=== PATIENT | female | born 1970 | race Hispanic/Latino ===

== ENCOUNTER 2018-03-09 17:55 | Emergency (ER) | payer OTHER ==
[2018-03-09 18:14] VITALS: PULSE 85; RESP 18; TEMP 98.2; O2SAT 98
--- NOTE | 2018-03-09 19:51 | ED PDOC ---
Arrival/HPI - General Chief Complaint: Medical Clearance Time Seen by Provider: 03/09/18 17:59 Historian: Patient - History of Present Illness Narrative History of Present Illness (Text): 03/09/18 19:45 47yo female with pmhx of hypertension, anxiety bib EMS to r/o TB. Patient reports hemoptysis/blood streak sputum for months now. States she was seen by her PMD and had chest xray 2months ago. She states she had blood work today, but was told by her PMD to go to the ED days ago. She reports intermittent cough. She denies weight loss, night sweats, chest pain, SOB, diaphoresis, any other complaint. Past Medical History - Provider Review Nursing Documentation Reviewed: Yes - Infectious Disease Hx of Infectious Diseases: None - Cardiac Hx Hypertension: Yes - Pulmonary Hx Asthma: Yes Hx Chronic Obstructive Pulmonary Disease (COPD): Yes - Neurological Hx Seizures: Yes - HEENT Hx HEENT Disorder: No - Renal Hx Renal Disorder: No - Endocrine/Metabolic Hx Endocrine Disorders: No - Hematological/Oncological Hx Blood Disorders: No - Integumentary Other/Comment: red raised rash over entire body caused by dilantin as per patient, she now takes a lower dose. Pt has had rash x 2 months - Musculoskeletal/Rheumatological Hx Musculoskeletal Disorders: No Hx Falls: No - Gastrointestinal Hx Gastrointestinal Disorders: No - Genitourinary/Gynecological Hx Genitourinary Disorders: No Other/Comment: pt has 14 children including 4 sets of twins - Psychiatric Hx Anxiety: Yes Hx Depression: Yes Hx Substance Use: No - Past Surgical History Past Surgical History: No Previous - Surgical History Hx Tonsillectomy: Yes - Anesthesia Hx Anesthesia: Yes - Suicidal Assessment Feels Threatened In Home Enviroment: No Family/Social History - Physician Review Nursing Documentation Reviewed: Yes Family/Social History: Unknown Family HX Smoking Status: Heavy Smoker > 10 Cigarettes Daily Hx Alcohol Use: Yes (beer every other day) Hx Substance Use: No Substance used: crack, [place] Allergies/Home Meds Allergies/Adverse Reactions: Allergies Penicillins Allergy (Severe, Verified 03/09/18 18:22) SHORTNESS OF BREATH Home Medications: Home Meds Medication Instructions Recorded Confirmed ALPRAZolam [Xanax] 1 mg PO PRN PRN 02/26/14 09/19/15 Acetaminophen/Oxycodone Hydr 1 tab PO DAILY 02/26/14 09/19/15 [APAP/Oxycodone 325 mg-5 mg] Albuterol Sulfate [Proair Hfa] 1 puff PO DAILY 02/26/14 09/19/15 Albuterol Sulfate [Ventolin Hfa] 1 puff PO PRN PRN 02/26/14 09/19/15 Amlodipine Besylate [Amlodipine] 2.5 mg PO DAILY 02/26/14 09/19/15 Aspirin [Aspirin] 325 mg PO DAILY 02/26/14 09/19/15 Beclomethasone Dipropionate [Qvar] 1 puff PO PRN PRN 02/26/14 09/19/15 Cetirizine HCl [Cetirizine HCl] 10 mg PO DAILY 02/26/14 09/19/15 Loratadine [Loratadine] 10 mg PO DAILY 02/26/14 09/19/15 Mometasone/Formoterol [Dulera] 1 puff PO DAILY 02/26/14 09/19/15 Phenytoin [Phenytoin] 100 mg PO TID 02/26/14 09/19/15 Famotidine [Pepcid] 40 mg PO DAILY 09/19/15 09/19/15 Fluticasone/Vilanterol [Breo 1 puff INH DAILY 09/19/15 09/19/15 Ellipta] Review of Systems - Physician Review All systems were reviewed & negative as marked: Yes - Review of Systems Constitutional: Normal Eyes: Normal ENT: Normal Respiratory: Cough, Sputum (blood streak) Cardiovascular: Normal Gastrointestinal: Normal Genitourinary Female: Normal Musculoskeletal: Normal Skin: Normal Neurological: Normal Endocrine: Normal Hemo/Lymphatic: Normal Psychiatric: Normal Physical Exam Vital Signs Reviewed: Yes Vital Signs Temp Pulse Resp BP Pulse Ox 03/09/18 18:11 98.2 F 85 18 147/51 L 98 Temperature: Afebrile Blood Pressure: Normal Pulse: Regular Respiratory Rate: Normal Appearance: Positive for: Well-Appearing, Non-Toxic, Comfortable Pain Distress: None Mental Status: Positive for: Alert and Oriented X 3 - Systems Exam Head: Present: Atraumatic, Normocephalic Pupils: Present: PERRL Extroacular Muscles: Present: EOMI Conjunctiva: Present: Normal Mouth: Present: Moist Mucous Membranes Neck: Present: Normal Range of Motion Respiratory/Chest: Present: Clear to Auscultation, Good Air Exchange. No: Respiratory Distress, Accessory Muscle Use, Wheezes, Decreased Breath Sounds, Rales, Retracting, Rhonchi, Tachypneic Cardiovascular: Present: Regular Rate and Rhythm, Normal S1, S2. No: Murmurs Abdomen: No: Tenderness, Distention, Peritoneal Signs Back: Present: Normal Inspection Upper Extremity: Present: Normal Inspection. No: Cyanosis, Edema Lower Extremity: Present: Normal Inspection. No: Edema Neurological: Present: GCS=15, CN II-XII Intact, Speech Normal Skin: Present: Warm, Dry, Normal Color. No: Rashes Psychiatric: Present: Alert, Oriented x 3, Normal Insight, Normal Concentration Medical Decision Making ED Course and Treatment: 03/09/18 20:36 PT presented to ED for stated history. Cough was not noted in ED. She was ambulatory and not hypoxic or in any respiratory distress. She was hemodynamically stable. Chest Ct was done in ED. PT however eloped form the ED while waiting for the CT result. - RAD Interpretation Radiology Orders: 03/09/18 18:22 CHEST W/O CONTRAST [CT] Stat Disposition/Present on Arrival - Present on Arrival Any Indicators Present on Arrival: No History of DVT/PE: No History of Uncontrolled Diabetes: No Urinary Catheter: No History of Decub. Ulcer: No History Surgical Site Infection Following: None - Disposition Have Diagnosis and Disposition been Completed?: Yes Diagnosis: Cough, Hemoptysis Disposition: ELOPEMENT - ER ONLY Disposition Time: 20:20 Condition: STABLE Referrals: Lex Abraham MD [Primary Care Provider] - Follow up with primary Forms: [employer] (Japanese)
--- NOTE | 2018-03-09 20:35 | CT ---
EXAM: CT Chest Without Intravenous Contrast EXAM DATE/TIME: 03/09/2018 6:22 PM CLINICAL HISTORY: The patient age is 47 years old and is female; Signs and symptoms; Other: Hemoptysis see below; Additional info: Hemoptysis see below Facility exam id and description: Ct chests chest w/o contrast TECHNIQUE: Axial computed tomography images of the chest without intravenous contrast. All CT scans at this facility use one or more dose reduction techniques, viz.: automated exposure control; ma/kV adjustment per patient size (including targeted exams where dose is matched to indication; i.e. head); or iterative reconstruction technique. Coronal reformatted images were created and reviewed. COMPARISON: No relevant prior studies available. FINDINGS: Lungs: Biapical bullae are visualized. Centrilobular and paraseptal emphysematous changes are identified. There is a small consolidation within the posterior aspect of the right upper lobe, suggestive of atelectatic change or infiltrate. Biapical parenchymal scarring/consolidations are visualized. Within the right middle lobe a 64, there is a 4-5 mm nodule. Scattered tiny hyperdense/calcified nodules are visualized within the right lower lobe. Within the right lower lobe on series 5 image 248, there is an 8mm pleurally based nodule with a small focus of calcification. There is mild pleurally based nodularity within the left lower lobe. Within the left lower lobe on series 4 image 87, there is a 4-5 mm nodule. Scattered nodules are seen within the bilateral pulmonary apices. The largest within the left lung apex on series 4 image 24 measures 7-8 mm. Pleural space: No pneumothorax. No significant effusion. Heart: There is coronary artery calcification. Mediastinum: A few small foci of gas are identified posterior lateral to the trachea, consistent with paratracheal air cysts. Bones/joints: Hypertrophic degenerative changes are noted within the spine. There is mild levoscoliosis of the visualized lumbar spine. Vasculature: No thoracic aortic aneurysm. Lymph nodes: There is a mildly enlarged left axillary lymph node measuring 1.5 x 1.0 cm. Additional small axillary lymph nodes are seen bilaterally. Small mediastinal lymph nodes are visualized, no significant mediastinal lymphadenopathy. Evaluation for hilar lymphadenopathy is limited by the absence of intravenous contrast. Liver: There is hypodense fatty infiltration of the liver. Pancreas: There is atrophy of the pancreas. The pancreas is incompletely visualized. IMPRESSION: 1. Biapical bullae are visualized. Centrilobular and paraseptal emphysematous changes are identified. 2. There is a small consolidation within the posterior aspect of the right upper lobe, suggestive of atelectatic change or infiltrate. Biapical parenchymal scarring/consolidations are visualized. Clinical correlation and follow-up CT are recommended. 3. Scattered pulmonary nodules are noted above. See recommendations below. 4. There is a mildly enlarged left axillary lymph node measuring 1.5 x 1.0 cm. Additional small axillary lymph nodes are seen bilaterally. 5. There is hypodense fatty infiltration of the liver. 6. Additional CT findings described above. FLEISCHNER SOLID 6-8mm MULTIPLE As per Fleischner Society 2017 guidelines for follow-up and management of pulmonary nodules: For patients at low risk (minimal or absent history of smoking and of other known risk factors), recommend CT at 3-6 months, then consider CT at 18-24 months. For patient at high risk (history of smoking or of other known risk factors), recommend CT at 3-6 months, then CT at 18-24 months.
[2018-03-09 21:42] VITALS: BP 147/81
== END 2018-03-09 21:00 | disposition left against medical advice (07) ==
LOC: ED 17:55
DX: R04.2 Hemoptysis (principal)

== ENCOUNTER 2019-01-27 23:20 | Observation (INO) | payer OTHER ==
[2019-01-27 23:22] VITALS: BMI 25.4
[2019-01-27] MEDS ORDERED: Sodium Chloride 0.9% 500 ML IV STA (23:58)
[2019-01-28 00:11] LABS: BASO # 0.07 K/mm3 (0.0-2.0); BASO % 1.1 % (0.0-3.0); EOS # 0.4 (0.0-0.7); EOS % 6.6 % (1.5-5.0); HEMOGLOBIN 9.7 g/dL (12.0-16.0); LYMPH # 2.1 (1.2-3.4); LYMPH % 32.1 % (22.0-35.0); MEAN CELL VOLUME 96.1 fl (80.0-105.0); MEAN CORPUSCULAR HEMOGLOBIN 31.2 pg (25.0-35.0); MEAN CORPUSCULAR HGB CONC 32.4 g/dl (31.0-37.0); MEAN PLATELET VOLUME 9.1 fl (7.0-11.0); MONO # 0.7 (0.1-0.6); RBC 3.11 10^6/uL (3.5-6.1); RED CELL DISTRIBUTION WIDTH 13.6 % (11.5-14.5); WHITE BLOOD COUNT 6.4 10^3/uL (4.5-11.0)
[2019-01-28 00:20] LABS: ALB/GLOB RATIO 1.1 (1.1-1.8); ALT/SGPT 28 U/L (7-56); AST/SGOT 67 U/L (14-36); BLOOD UREA NITROGEN 16 mg/dL (7-21); GFR NON-AFRICAN AMERICAN > 60
[2019-01-28 00:37] LABS: TROPONIN I < 0.01 ng/mL
[2019-01-28 00:38] LABS: CK-MB 2.8 ng/mL (0.0-3.6)
--- NOTE | 2019-01-28 01:51 | ED PDOC ---
Arrival/HPI - General Chief Complaint: Syncope Time Seen by Provider: 01/27/19 23:45 Historian: Patient - History of Present Illness Narrative History of Present Illness (Text): Leta Gallegos is a 48 year old female, whose past medical history includes hypertension, hyperlipidemia, and seizures, who presents to the ED status post syncopal episode. Patient states she was leaving her doctor's office and reports the next thing she remember was that she was on the ground. Patient states she got up and had severe pain to her left ribs radiating to left arm. Patient denies any shortness of breath, abdominal pain, back pain, headache, or any other complaints. Patient states she had no chest pain, or dizziness prior to syncopal episode. Symptom Onset: Sudden Symptom Course: Unchanged Activities at Onset: Light Context: Home Past Medical History - Provider Review Nursing Documentation Reviewed: Yes Primary Care Physician: Lex Abraham MD - Infectious Disease Hx of Infectious Diseases: None - Cardiac Hx Hypertension: Yes - Pulmonary Hx Asthma: Yes Hx Chronic Obstructive Pulmonary Disease (COPD): Yes Hx Emphysema: Yes - Neurological Hx Seizures: Yes - HEENT Hx HEENT Disorder: No - Renal Hx Renal Disorder: No - Endocrine/Metabolic Hx Endocrine Disorders: No - Hematological/Oncological Hx Blood Disorders: No - Integumentary Other/Comment: red raised rash over entire body caused by dilantin as per patient, she now takes a lower dose. Pt has had rash x 2 months - Musculoskeletal/Rheumatological Hx Musculoskeletal Disorders: No Hx Falls: No - Gastrointestinal Hx Gastrointestinal Disorders: No - Genitourinary/Gynecological Hx Genitourinary Disorders: No Other/Comment: pt has 14 children including 4 sets of twins - Psychiatric Hx Anxiety: Yes Hx Depression: Yes Hx Substance Use: No - Past Surgical History Past Surgical History: No Previous - Surgical History Hx Tonsillectomy: Yes - Anesthesia Hx Anesthesia: Yes - Suicidal Assessment Feels Threatened In Home Enviroment: No Family/Social History - Physician Review Nursing Documentation Reviewed: Yes Family/Social History: Unknown Family HX Smoking Status: Heavy Smoker > 10 Cigarettes Daily Hx Alcohol Use: Yes ("1 shot & 1 beer everyday") Frequency of alcohol use: Daily Hx Substance Use: No Substance used: crack, marijuana Allergies/Home Meds Allergies/Adverse Reactions: Allergies Penicillins Allergy (Severe, Verified 01/27/19 23:22) SHORTNESS OF BREATH Home Medications: Home Meds Medication Instructions Recorded Confirmed ALPRAZolam [Xanax] 1 mg PO DAILY 01/27/19 01/27/19 Pantoprazole [Protonix EC Tab] 40 mg PO DAILY 01/27/19 01/27/19 Calcium Carbonate/Vitamin D3 1 tab PO DAILY 01/28/19 01/28/19 [Calcium 500 + Vit D Caplet] Fluticasone/Salmeterol [Advair 1 puff IH DAILY 01/28/19 01/28/19 250-50 Diskus] Loratadine [Claritin] 1 tab PO DAILY 01/28/19 01/28/19 Montelukast [Singulair] 1 tab PO DAILY 01/28/19 01/28/19 Multivitamin [Multivitamins] 1 tab PO DAILY 01/28/19 01/28/19 Pravastatin Sodium [Pravachol] 1 tab PO HS 01/28/19 01/28/19 amLODIPine [Norvasc] 5 mg PO DAILY 01/28/19 01/28/19 levETIRAcetam [Keppra] 1 tab PO DAILY 01/28/19 01/28/19 Review of Systems - Physician Review All systems were reviewed & negative as marked: Yes - Review of Systems Constitutional: Normal. absent: Fevers Eyes: Normal ENT: Normal Respiratory: Normal. absent: SOB, Cough Cardiovascular: Syncope Gastrointestinal: Normal. absent: Abdominal Pain, Diarrhea, Nausea, Vomiting Genitourinary Female: Normal. absent: Dysuria, Frequency, Hematuria, Urine Output Changes Musculoskeletal: Arthralgias (left rib pain), Other (+left rib pain). absent: N fabiola Pain Skin: Normal. absent: Rash Neurological: absent: Headache, Dizziness Endocrine: Normal Psychiatric: absent: Anxiety, Depression Physical Exam Vital Signs Reviewed: Yes Vital Signs Pulse Resp BP Pulse Ox 01/28/19 00:27 83 18 111/67 98 01/28/19 00:12 87 18 97 Temperature: Afebrile Blood Pressure: Normal Pulse: Regular Respiratory Rate: Normal Appearance: Positive for: Well-Appearing, Non-Toxic, Comfortable Pain Distress: None Mental Status: Positive for: Alert and Oriented X 3 - Systems Exam Head: Present: Atraumatic, Normocephalic Pupils: Present: PERRL Extroacular Muscles: Present: EOMI Conjunctiva: Present: Normal Mouth: Present: Moist Mucous Membranes Neck: Present: Normal Range of Motion Respiratory/Chest: Present: Clear to Auscultation, Good Air Exchange, Tender to Palpation (Left-sided lower lateral rib tenderness. no step offs or crepitus. no ecchymosis. ). No: Respiratory Distress, Accessory Muscle Use Cardiovascular: Present: Regular Rate and Rhythm, Normal S1, S2. No: Murmurs Abdomen: No: Tenderness, Distention, Peritoneal Signs, Rebound, Guarding, Other (No ecchymosis) Back: Present: Normal Inspection. No: CVA Tenderness, Midline Tenderness, Paraspinal Tenderness Upper Extremity: Present: Normal Inspection, Normal ROM (Normal ROM of left upper extremity), NORMAL PULSES, Neurovascularly Intact, Capillary Refill < 2s. No: Cyanosis, Edema, Tenderness, Swelling, Erythema, Temperature Abnormalties, Deformity Lower Extremity: Present: Normal Inspection, NORMAL PULSES, Normal ROM (Normal ROM of bilateral lower extremities), Neurovascularly Intact, Capillary Refill < 2 s. No: Edema, Cyanosis, Tenderness, Swelling, Erythema, Deformity, Temperature Abnormalties Neurological: Present: GCS=15, Speech Normal, Motor Func Grossly Intact, Normal Sensory Function Skin: Present: Warm, Dry, Normal Color. No: Rashes Psychiatric: Present: Alert, Oriented x 3 Medical Decision Making ED Course and Treatment: Impression: 48 year old female presents s/p syncopal episode with left rib pain radiating to left arm. Plan: -- CT Head w/o contrast -- EKG -- Chest X-ray -- XR Left Ribs -- CBC, CMP -- Cardiac enzymes -- IV fluids -- Reassess and disposition Prior Visits: Notes and results from previous visits were reviewed. Progress Notes: 01/28/19 02:57 ct head: Normal size of the ventricles and extra-axial spaces for the patient's age. Normal white matter tracts of the supratentorial brain. Normal basal ganglia and thalami. Normal brainstem. Normal cerebellum. There is no demonstrated extra-axial, intraparenchymal, or intraventricular hemorrhage. There are no findings of an acute ischemic infarction. Normal calvarium. There is no demonstrated fracture. Normal soft tissue structures. Mild chronic mucosal inflammatory changes of the ethmoid air cells. Normal remaining visualized paranasal sinuses. IMPRESSION: Normal unenhanced CT scan of the brain. Electronically signed on Jan 28, 2019 2:14:47 AM EDT by: Dedrick Davis M.D., Certified by ABR, MSK, Neuroradiology cbc; wnl cmp; wnl trop; wnl xray left ribs; no fx cxr; wnl no medications given for pain; pt reassessment; pt is sleeping; no distress. left shoulder xray. ekg; normal sinus rhythm at 87 bpm normal axis normal intervals no ST elevations case discussed with dr. lema in depth; accepts obs admission to tele for syncope. case discussed with medical writer. impression; syncope, rib pain admit tele obs. Reassessment Condition: Re-examined - Lab Interpretations Lab Results: Troponin I < 0.01 ng/mL 01/28/19 00:00 Total Bilirubin 0.2 mg/dL (0.2-1.3) 01/28/19 00:00 AST 67 U/L (14-36) H 01/28/19 00:00 ALT 28 U/L (7-56) 01/28/19 00:00 Alkaline Phosphatase 104 U/L (38-126) 01/28/19 00:00 Total Protein 7.4 g/dL (5.8-8.3) 01/28/19 00:00 Albumin 4.0 g/dL (3.0-4.8) 01/28/19 00:00 Globulin 3.5 gm/dL 01/28/19 00:00 Albumin/Globulin Ratio 1.1 (1.1-1.8) 01/28/19 00:00 - RAD Interpretation Radiology Orders: 01/27/19 23:57 HEAD W/O CONTRAST [CT] Stat CHEST PORTABLE [RAD] Stat 01/28/19 00:55 RIBS LEFT [RAD] Stat - Medication Orders Current Medication Orders: Discontinued Medications Sodium Chloride (Sodium Chloride 0.9%) 500 mls @ 999 mls/hr IV .Q31M STA Stop: 01/28/19 00:28 Last Admin: 01/28/19 00:10 Dose: 999 mls/hr eMAR Start Stop Document 01/28/19 00:10 CNR (Rec: 01/28/19 00:11 CNR [id number]) Intravenous Solution Start Date 01/28/19 Start Time 00:11 End Date 01/28/19 End time 00:41 Total Infusion Time 30 - Scribe Statement The provider has reviewed the documentation as recorded by the Mariposa Gonzalez Provider Scribe Attestation: All medical record entries made by the Scribe were at my direction and personally dictated by me. I have reviewed the chart and agree that the record accurately reflects my personal performance of the history, physical exam, medical decision making, and the department course for this patient. I have also personally directed, reviewed, and agree with the discharge instructions and disposition. Disposition/Present on Arrival - Present on Arrival Any Indicators Present on Arrival: No History of DVT/PE: No History of Uncontrolled Diabetes: No Urinary Catheter: No History of Decub. Ulcer: No History Surgical Site Infection Following: None - Disposition Have Diagnosis and Disposition been Completed?: Yes Diagnosis: Syncope, Rib contusion Disposition: HOSPITALIZED Disposition Time: 02:30 Patient Plan: Observation Patient Problems: Current Active Problems Problem Status Onset Rib contusion Acute Syncope Acute Condition: FAIR Discharge Instructions (ExitCare): Syncope (ED) Referrals: Lex Abraham MD [Primary Care Provider] - Follow up with primary Forms: [employer] (Azeri)
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
[2019-01-28] MEDS ORDERED: Albuterol-Ipratrop 3 mg / 0.5 (3 ml) UD IH PRN (03:59)
[2019-01-28 04:33] VITALS: RESP 20
[2019-01-28 05:54] VITALS: BP 138/91; O2SAT 97
[2019-01-28] MEDS ORDERED: Pantoprazole 40 mg EC Tab PO SCH (06:00)
[2019-01-28 06:10] LABS: BARBITURATES, UR NEGATIVE (NEGATIVE); BENZODIAZEPINES, UR NEGATIVE (NEGATIVE); OPIATES, UR NEGATIVE (NEGATIVE); PHENCYCLIDINE, UR NEGATIVE (NEGATIVE)
[2019-01-28 07:13] LABS: BASO # 0.03 K/mm3 (0.0-2.0); BASO % 0.4 % (0.0-3.0); EOS # 0.4 (0.0-0.7); HEMOGLOBIN 10.1 g/dL (12.0-16.0); LYMPH # 1.8 (1.2-3.4); LYMPH % 25.5 % (22.0-35.0); MEAN CELL VOLUME 96.3 fl (80.0-105.0); MEAN CORPUSCULAR HEMOGLOBIN 30.8 pg (25.0-35.0); MEAN PLATELET VOLUME 9.3 fl (7.0-11.0); MONO # 0.9 (0.1-0.6); MONO % 12.4 % (1.0-6.0); RBC 3.28 10^6/uL (3.5-6.1); RED CELL DISTRIBUTION WIDTH 13.8 % (11.5-14.5); WHITE BLOOD COUNT 6.9 10^3/uL (4.5-11.0)
[2019-01-28 07:21] LABS: IRON 47 ug/dL (45-180)
[2019-01-28 07:34] LABS: % IRON SATURATION 19 % (20-55); TOTAL IRON BINDING CAPACITY 243 ug/dL (265-497)
[2019-01-28 07:36] LABS: TROPONIN I < 0.01 ng/mL
[2019-01-28 07:53] LABS: ALB/GLOB RATIO 1.1 (1.1-1.8); ALBUMIN 3.7 g/dL (3.0-4.8); ALT/SGPT 25 U/L (7-56); AST/SGOT 48 U/L (14-36); BLOOD UREA NITROGEN 13 mg/dL (7-21); CALCIUM 8.4 mg/dL (8.4-10.5); GFR NON-AFRICAN AMERICAN > 60
[2019-01-28] MEDS ORDERED: Arformoterol 15 mcg/2 ml Inh Sol IH SCH (08:00)
[2019-01-28] MEDS ORDERED: Albuterol-Ipratrop 3 mg / 0.5 (3 ml) UD IH SCH (08:00)
[2019-01-28] MEDS ORDERED: Multivitamin With Minerals Tab PO SCH (08:00)
[2019-01-28] MEDS ORDERED: Budesonide 0.5 mg/2 ml Inhal Susp UD IH SCH (08:00)
[2019-01-28] MEDS ORDERED: Magnesium Sulfate 2 gm/50 ml 2 GM/50 ML BAG IVPB ONE (08:05)
--- NOTE | 2019-01-28 08:58 | CT ---
Date of service: 01/28/2019 PROCEDURE: CT HEAD WITHOUT CONTRAST. HISTORY: syncope COMPARISON: None available. TECHNIQUE: Axial computed tomography images were obtained through the head/brain without intravenous contrast. Supplemental Coronal and Sagittal projections created and reviewed. Radiation dose: Total exam DLP = 776.81 mGy-cm. This CT exam was performed using one or more of the following dose reduction techniques: Automated exposure control, adjustment of the mA and/or kV according to patient size, and/or use of iterative reconstruction technique. FINDINGS: HEMORRHAGE: No intracranial hemorrhage. BRAIN: No mass effect or edema. No atrophy or chronic microvascular ischemic changes. VENTRICLES: Unremarkable. No hydrocephalus. CALVARIUM: Unremarkable. PARANASAL SINUSES: Unremarkable as visualized. No significant inflammatory changes. MASTOID AIR CELLS: Unremarkable as visualized. No inflammatory changes. OTHER FINDINGS: None. IMPRESSION: No acute intracranial abnormalities. No significant findings to account for the clinical presentation.
[2019-01-28] MEDS ORDERED: Fluticasone-Salmeterol 250-50mcg Diskus IH SCH (10:00)
[2019-01-28] MEDS ORDERED: Calcium-Vit D 250 mg-125 Units Tab UD PO SCH (10:00)
--- NOTE | 2019-01-28 10:41 | CARD ---
APPROVED REPORT Date of service: 01/28/2019 EKG Measurement Heart [id number] <Conclusion> Normal sinus rhythm Normal ECG
--- NOTE | 2019-01-28 10:49 | CARD ---
APPROVED REPORT Date of service: 01/27/2019 EKG Measurement Heart [id number] <Conclusion> Normal sinus rhythm Normal ECG
[2019-01-28 12:17] VITALS: PULSE 87; TEMP 98.3
--- NOTE | 2019-01-28 12:32 | RAD ---
Date of service: 01/28/2019 PROCEDURE: Radiographs of the Chest and Left Ribs. HISTORY: rib pain s/p syncope COMPARISON: January 28, 2019. Single-view chest reported separately. TECHNIQUE: Frontal radiograph of the chest and multiple oblique radiographs of the left ribs were obtained. 4 views obtained. FINDINGS: LEFT RIBS: No fracture or focal lesion visualized. LUNGS: Clear. PLEURA: No pneumothorax or pleural fluid. CARDIOVASCULAR: Normal cardiac size. No pulmonary vascular congestion. No aortic atherosclerotic calcification present OTHER FINDINGS: None. IMPRESSION: Unremarkable radiographs of the chest and left ribs. No left rib fracture.
--- NOTE | 2019-01-28 12:32 | RAD ---
Date of service: 01/28/2019 HISTORY: syncope COMPARISON: 06/20/2015 single-view chest. 03/09/2018 CT thorax. FINDINGS: LUNGS: Biapical scarring and fibronodular changes right greater than left. PLEURA: No significant pleural effusion identified, no pneumothorax apparent. CARDIOVASCULAR: No atherosclerotic calcification present Normal. OSSEOUS STRUCTURES: No significant abnormalities. VISUALIZED UPPER ABDOMEN: Normal. OTHER FINDINGS: None. IMPRESSION: No active pulmonary disease. No significant interval change compared to the prior examination(s).
--- NOTE | 2019-01-28 12:35 | RAD ---
Date of service: 01/28/2019 PROCEDURE: Radiographs of the Left Shoulder HISTORY: Posttraumatic left shoulder pain. COMPARISON: No prior. TECHNIQUE: 3 views obtained. FINDINGS: BONES: Normal. No fracture. JOINTS: Normal. Glenohumeral and acromioclavicular joints preserved. No osteoarthritis. SOFT TISSUES: Normal. OTHER FINDINGS: None. IMPRESSION: Unremarkable radiographs of the left shoulder.
--- NOTE | 2019-01-28 13:41 | CP.PCM.DIS ---
<Lizandro Botello - Last Filed: 01/28/19 13:35> Provider - Provider Date of Admission: 01/28/19 03:05 Attending physician: Kell Enriquez MD Primary care physician: Lex Abraham MD Consults: 01/28/19 04:10 Physician Consult Routine Comment: Consulting Provider: Xiao Cedillo Consulting Physician: Xiao Cedillo Reason for Consult: syncope. h/o seizure Time Spent in preparation of Discharge (in minutes): 35 Hospital Course - Lab Results Lab Results: Most Recent Lab Values WBC 6.9 10^3/uL (4.5-11.0) 01/28/19 07:00 RBC 3.28 10^6/uL (3.5-6.1) L 01/28/19 07:00 Hgb 10.1 g/dL (12.0-16.0) L 01/28/19 07:00 Hct 31.6 % (36.0-48.0) L 01/28/19 07:00 MCV 96.3 fl (80.0-105.0) 01/28/19 07:00 MCH 30.8 pg (25.0-35.0) 01/28/19 07:00 MCHC 32.0 g/dl (31.0-37.0) 01/28/19 07:00 RDW 13.8 % (11.5-14.5) 01/28/19 07:00 Plt Count 284 10^3/uL (120.0-450.0) 01/28/19 07:00 MPV 9.3 fl (7.0-11.0) 01/28/19 07:00 Neut % (Auto) 55.7 % (50.0-68.0) 01/28/19 07:00 Lymph % (Auto) 25.5 % (22.0-35.0) 01/28/19 07:00 Wayne % (Auto) 12.4 % (1.0-6.0) H 01/28/19 07:00 Eos % (Auto) 6.0 % (1.5-5.0) H 01/28/19 07:00 Baso % (Auto) 0.4 % (0.0-3.0) 01/28/19 07:00 Lymph # (Auto) 1.8 (1.2-3.4) 01/28/19 07:00 Wayne # (Auto) 0.9 (0.1-0.6) H 01/28/19 07:00 Eos # (Auto) 0.4 (0.0-0.7) 01/28/19 07:00 Baso # (Auto) 0.03 K/mm3 (0.0-2.0) 01/28/19 07:00 Absolute Neuts (auto) 3.82 (1.4-6.5) 01/28/19 07:00 Sodium 140 mmol/L (132-148) 01/28/19 07:00 Potassium 3.6 mmol/L (3.6-5.0) 01/28/19 07:00 Chloride 104 mmol/L (98-107) 01/28/19 07:00 Carbon Dioxide 28 mmol/L (21-33) 01/28/19 07:00 Anion Gap 11 (10-20) 01/28/19 07:00 BUN 13 mg/dL (7-21) 01/28/19 07:00 Creatinine 0.6 mg/dl (0.7-1.2) L 01/28/19 07:00 Est GFR ( Amer) > 60 01/28/19 07:00 Est GFR (Non-Af Amer) > 60 01/28/19 07:00 Random Glucose 92 mg/dL (70-110) 01/28/19 07:00 Hemoglobin A1c 5.2 % (4.2-6.5) 01/28/19 07:00 Calcium 8.4 mg/dL (8.4-10.5) 01/28/19 07:00 Phosphorus 3.6 mg/dL (2.5-4.5) 01/28/19 07:00 Magnesium 1.2 mg/dL (1.7-2.2) L 01/28/19 07:00 Iron 47 ug/dL (45-180) 01/28/19 07:00 TIBC 243 ug/dL (265-497) L 01/28/19 07:00 % Saturation 19 % (20-55) L 01/28/19 07:00 Ferritin 83.0 ng/mL 01/28/19 07:00 Total Bilirubin 0.3 mg/dL (0.2-1.3) 01/28/19 07:00 AST 48 U/L (14-36) H D 01/28/19 07:00 ALT 25 U/L (7-56) 01/28/19 07:00 Alkaline Phosphatase 112 U/L (38-126) 01/28/19 07:00 Lactate Dehydrogenase 847 U/L (333-699) H 01/28/19 00:00 Total Creatine Kinase 272 U/L (35-230) H 01/28/19 00:00 CK-MB (CK-2) 2.8 ng/mL (0.0-3.6) 01/28/19 00:00 CK-MB (CK-2) % Cancelled 01/28/19 00:00 Troponin I < 0.01 ng/mL 01/28/19 12:05 Total Protein 6.9 g/dL (5.8-8.3) 01/28/19 07:00 Albumin 3.7 g/dL (3.0-4.8) 01/28/19 07:00 Globulin 3.2 gm/dL 01/28/19 07:00 Albumin/Globulin Ratio 1.1 (1.1-1.8) 01/28/19 07:00 TSH 3rd Generation 2.65 mIU/mL (0.46-4.68) 01/28/19 07:00 Urine Opiates Screen Negative (NEGATIVE) 01/28/19 04:20 Urine Methadone Screen Negative (NEGATIVE) 01/28/19 04:20 Ur Barbiturates Screen Negative (NEGATIVE) 01/28/19 04:20 Ur Phencyclidine Scrn Negative (NEGATIVE) 01/28/19 04:20 Ur Amphetamines Screen Negative (NEGATIVE) 01/28/19 04:20 U Benzodiazepines Scrn Negative (NEGATIVE) 01/28/19 04:20 U Oth Cocaine Metabols Positive (NEGATIVE) H 01/28/19 04:20 U Cannabinoids Screen Negative (NEGATIVE) 01/28/19 04:20 Alcohol, Quantitative < 10 mg/dL (0-10) 01/28/19 12:05 - Hospital Course Hospital Course: Lizandro Botello, PGY1 Discharge Summary for Dr. Enriquez Patient is a 48 year old female with PMHx of seizure disorder, HTN, hy percholesterolemia, COPD, Emphysema, and bipolar disorder who presented to the ER following a syncopal episode. Patient said she was walking out of her doctor's office when she began having vision changes followed by "blacking out." She admits to LOC for 10-15 minutes. Similar episode occurred in September. She was admitted for syncope. EKG was NSR with no acute ST or T wave changes. Patient's physical exam was benign. Her labs and vitals were stable. CT Head was done and was normal. Neurology was placed on consult. They examined patient in the morning. Patient went for an echo in the morning as part of syncope workup. In the morning, she said her symptoms resolved. She endorses that her symptoms occurred because she was not taking her blood pressure meds appropriately and also because she was getting out of bed too quickly. EtOH level was negative but she admits to 2 drinks a day. Placed on CIWA protocol. Utox +cocaine. She also had left rib pain due to her syncopal episode/fall. Rib XR, CXR, and Shoulder XR were unremarkable. After being seen by neuro, patient was anxious to leave. She decided to sign out against medical advice. She has full capacity and is AAOx3 and aware of risks. She was explained in depth the risks of signing out such as arrhythmia, further syncope, stroke, seizures, permanent disability, and . Patient signed out against medical advice. Discharge Exam - Head Exam Head Exam: ATRAUMATIC, NORMAL INSPECTION, NORMOCEPHALIC - Eye Exam Eye Exam: EOMI, Normal appearance Pupil Exam: NORMAL ACCOMODATION - ENT Exam ENT Exam: Mucous Membranes Moist Additional comments: Cleft lip - Cardiovascular Exam Cardiovascular Exam: RRR, +S1, +S2 - GI/Abdominal Exam GI & Abdominal Exam: Normal Bowel Sounds. absent: Guarding, Rebound, Rigid - Extremities Exam Extremities exam: normal capillary refill, normal inspection, pedal pulses present - Back Exam Back exam: NORMAL INSPECTION - Neurological Exam Neurological exam: Alert, CN II-XII Intact, Normal Gait, Oriented x3, Reflexes Normal - Psychiatric Exam Psychiatric exam: Normal Affect, Normal Mood - Skin Skin Exam: Dry, Intact, Normal Color, Warm Discharge Plan - Follow Up Plan Condition: STABLE Disposition: AGAINST MEDICAL ADVICE Referrals: Lex Abraham MD [Primary Care Provider] - <Kell Enriquez - Last Filed: 01/28/19 14:00> Provider - Provider Date of Admission: 01/28/19 03:05 Attending physician: Kell Enriquez MD Primary care physician: Lex Abraham MD Consults: 01/28/19 04:10 Physician Consult Routine Comment: Consulting Provider: Xiao Cedillo Consulting Physician: Xiao Cedillo Reason for Consult: syncope. h/o seizure Hospital Course - Lab Results Lab Results: Most Recent Lab Values WBC 6.9 10^3/uL (4.5-11.0) 01/28/19 07:00 RBC 3.28 10^6/uL (3.5-6.1) L 01/28/19 07:00 Hgb 10.1 g/dL (12.0-16.0) L 01/28/19 07:00 Hct 31.6 % (36.0-48.0) L 01/28/19 07:00 MCV 96.3 fl (80.0-105.0) 01/28/19 07:00 MCH 30.8 pg (25.0-35.0) 01/28/19 07:00 MCHC 32.0 g/dl (31.0-37.0) 01/28/19 07:00 RDW 13.8 % (11.5-14.5) 01/28/19 07:00 Plt Count 284 10^3/uL (120.0-450.0) 01/28/19 07:00 MPV 9.3 fl (7.0-11.0) 01/28/19 07:00 Neut % (Auto) 55.7 % (50.0-68.0) 01/28/19 07:00 Lymph % (Auto) 25.5 % (22.0-35.0) 01/28/19 07:00 Wayne % (Auto) 12.4 % (1.0-6.0) H 01/28/19 07:00 Eos % (Auto) 6.0 % (1.5-5.0) H 01/28/19 07:00 Baso % (Auto) 0.4 % (0.0-3.0) 01/28/19 07:00 Lymph # (Auto) 1.8 (1.2-3.4) 01/28/19 07:00 Wayne # (Auto) 0.9 (0.1-0.6) H 01/28/19 07:00 Eos # (Auto) 0.4 (0.0-0.7) 01/28/19 07:00 Baso # (Auto) 0.03 K/mm3 (0.0-2.0) 01/28/19 07:00 Absolute Neuts (auto) 3.82 (1.4-6.5) 01/28/19 07:00 Sodium 140 mmol/L (132-148) 01/28/19 07:00 Potassium 3.6 mmol/L (3.6-5.0) 01/28/19 07:00 Chloride 104 mmol/L (98-107) 01/28/19 07:00 Carbon Dioxide 28 mmol/L (21-33) 01/28/19 07:00 Anion Gap 11 (10-20) 01/28/19 07:00 BUN 13 mg/dL (7-21) 01/28/19 07:00 Creatinine 0.6 mg/dl (0.7-1.2) L 01/28/19 07:00 Est GFR ( Amer) > 60 01/28/19 07:00 Est GFR (Non-Af Amer) > 60 01/28/19 07:00 Random Glucose 92 mg/dL (70-110) 01/28/19 07:00 Hemoglobin A1c 5.2 % (4.2-6.5) 01/28/19 07:00 Calcium 8.4 mg/dL (8.4-10.5) 01/28/19 07:00 Phosphorus 3.6 mg/dL (2.5-4.5) 01/28/19 07:00 Magnesium 1.2 mg/dL (1.7-2.2) L 01/28/19 07:00 Iron 47 ug/dL (45-180) 01/28/19 07:00 TIBC 243 ug/dL (265-497) L 01/28/19 07:00 % Saturation 19 % (20-55) L 01/28/19 07:00 Ferritin 83.0 ng/mL 01/28/19 07:00 Total Bilirubin 0.3 mg/dL (0.2-1.3) 01/28/19 07:00 AST 48 U/L (14-36) H D 01/28/19 07:00 ALT 25 U/L (7-56) 01/28/19 07:00 Alkaline Phosphatase 112 U/L (38-126) 01/28/19 07:00 Lactate Dehydrogenase 847 U/L (333-699) H 01/28/19 00:00 Total Creatine Kinase 272 U/L (35-230) H 01/28/19 00:00 CK-MB (CK-2) 2.8 ng/mL (0.0-3.6) 01/28/19 00:00 CK-MB (CK-2) % Cancelled 01/28/19 00:00 Troponin I < 0.01 ng/mL 01/28/19 12:05 Total Protein 6.9 g/dL (5.8-8.3) 01/28/19 07:00 Albumin 3.7 g/dL (3.0-4.8) 01/28/19 07:00 Globulin 3.2 gm/dL 01/28/19 07:00 Albumin/Globulin Ratio 1.1 (1.1-1.8) 01/28/19 07:00 TSH 3rd Generation 2.65 mIU/mL (0.46-4.68) 01/28/19 07:00 Urine Opiates Screen Negative (NEGATIVE) 01/28/19 04:20 Urine Methadone Screen Negative (NEGATIVE) 01/28/19 04:20 Ur Barbiturates Screen Negative (NEGATIVE) 01/28/19 04:20 Ur Phencyclidine Scrn Negative (NEGATIVE) 01/28/19 04:20 Ur Amphetamines Screen Negative (NEGATIVE) 01/28/19 04:20 U Benzodiazepines Scrn Negative (NEGATIVE) 01/28/19 04:20 U Oth Cocaine Metabols Positive (NEGATIVE) H 01/28/19 04:20 U Cannabinoids Screen Negative (NEGATIVE) 01/28/19 04:20 Alcohol, Quantitative < 10 mg/dL (0-10) 01/28/19 12:05 Attending/Attestation - Attestation I have personally seen and examined this patient.: Yes I have fully participated in the care of the patient.: Yes I have reviewed all pertinent clinical information, including history, physical exam and plan: Yes Notes (Text): 01/28/19 13:55 48 year old female with past medical history of seizure disorder, hypertension, alcohol abuse and substance abuse who presented after syncopal episode. CT head was negative for acute findings. Echocardiogram was ordered and neurology evaluation was requested. However shortly after rounds patient signed out against medical advice. She was counselled on alcohol cessation and risks of continued substance abuse. Prognosis is guarded secondary to substance/alcohol abuse and noncompliance. Kell Enriquez MD Hospitalist.
--- NOTE | 2019-01-28 20:19 | CARD ---
APPROVED REPORT Date of service: 01/28/2019 EXAM: Two-dimensional and M-mode echocardiogram with Doppler and color Doppler. INDICATION Syncope 2D DIMENSIONS Left Atrium (2D)3.4 (1.6-4.0cm)IVSd0.7 (0.7-1.1cm) LVDd4.4 (3.9-5.9cm)PWd0.9 (0.7-1.1cm) LVDs3.6 (2.5-4.0cm)FS (%) 18.7 % LVEF (%)38.8 (>50%) M-Mode DIMENSIONS Aortic Root2.60 (2.2-3.7cm)Aortic Cusp Exc.1.50 (1.5-2.0cm) Aortic Valve AoV Peak Yizlpofb928.0cm/Georgina Peak GR.8mmHg Mitral Valve MV E Mhbvsyis29.1cm/sMV A Cmnifqdz27.2cm/sE/A ratio1.2 TDI Lateral E' Peak V12.30cm/sMedial E' Peak V10.70cm/sE/Lateral E'6.9 E/Medial E'8.0 Pulmonary Valve PV Peak Cyjnzomi37.2cm/sPV Peak Grad.2mmHg Tricuspid Valve TR Peak Dxdqsmsa472xe/sRAP [id number] Peak Gr.20mmHg [id number] LEFT VENTRICLE The Left Ventricle is borderline dilated in long axis There is normal left ventricular wall thickness. The systolic function is mildly impaired.EF-40-45% There is Mild global hypokinesis of the left ventricle. The left ventricular diastolic function is normal. No left ventricle thrombus noted on this study. There is no ventricular septal defect visualized. There is no left ventricular aneurysm. There is no mass noted in the left ventricle. RIGHT VENTRICLE The right ventricle is normal size. There is normal right ventricular wall thickness. The right ventricular systolic function is normal. ATRIA The left atrium size is normal. The right atrium size is normal. The interatrial septum is intact with no evidence for an atrial septal defect. AORTIC VALVE The aortic valve is thickened but opens well. No aortic regurgitation is present. There is no aortic valvular stenosis. There is no aortic valvular vegetation. MITRAL VALVE The mitral valve is thickened but opens well. Mitral regurgitation is trace. There is no mitral valve stenosis. There is no evidence of mitral valve prolapse. TRICUSPID VALVE The tricuspid valve leaflets are thickened , but open well. There is mild tricuspid regurgitation.RVSP_30 mmof Hg. There is no tricuspid valve stenosis. There is no tricuspid valve prolapse or vegetation. PULMONIC VALVE The pulmonary valve is normal in structure. There is no pulmonic valvular regurgitation. There is no pulmonic valvular stenosis. GREAT VESSELS The aortic root is normal in size. The ascending aorta is normal in size. The pulmonary artery is normal. The IVC is normal in size and collapses >50% with inspiration. PERICARDIAL EFFUSION There is no pleural effusion. There is no pericardial effusion. <Conclusion> The Left Ventricle is borderline dilated in long axis There is normal left ventricular wall thickness. The systolic function is mildly impaired.EF-40-45% Mitral regurgitation is trace. There is mild tricuspid regurgitation.RVSP_30 mmof Hg. The IVC is normal in size and collapses >50% with inspiration. There is no pericardial effusion. No Vegetation or thrombus noted.
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
== END 2019-01-28 13:31 | disposition left against medical advice (07) ==
LOC: ED 23:20 → ERH 01-28 03:05 → 2RSO 01-28 04:12
PROVIDERS: ADMIT Internal Medicine; ATTEND Internal Medicine
DX: R55 Syncope and collapse (principal); J43.9 Emphysema, unspecified; I10 Essential (primary) hypertension; E78.00 Pure hypercholesterolemia, unspecified; S20.219A Contusion of unspecified front wall of thorax, initial encounter; F31.9 Bipolar disorder, unspecified; G40.909 Epilepsy, unspecified, not intractable, without status epilepticus; F10.10 Alcohol abuse, uncomplicated; F17.210 Nicotine dependence, cigarettes, uncomplicated; E78.5 Hyperlipidemia, unspecified; D64.9 Anemia, unspecified; W19.XXXA Unspecified fall, initial encounter; Y92.9 Unspecified place or not applicable
CPT/HCPCS: 36415; 70450; 71045; 71100; 73030; 80053; 80320; 80324; 80345; 80346; 80349; 80353; 80358; 80361; 82550; 82553; 82728; 83036; 83540; 83550; 83615; 83735; 83992; 84100; 84443; 84484; 85025; 93005; 93306; G0378; J7040

== ENCOUNTER 2019-02-25 02:43 | Observation (INO) | payer OTHER ==
[2019-02-25 02:44] VITALS: BMI 25.4
--- NOTE | 2019-02-25 02:57 | ED PDOC ---
Arrival/HPI - General Chief Complaint: Syncope Time Seen by Provider: 02/25/19 02:53 Historian: Patient - History of Present Illness Narrative History of Present Illness (Text): 02/25/19 02:57 Leta Gallegos is a 48 year old female, whose past medical history includes seizure disorder, hypertension, hyperlipidemia, COPD, and bipolar disorder, who presents to the ED complaining syncope. Patient states she had a syncopal episode earlier this evening. Patient notes she was seen at [facility] for similar complaints a few days prior, had a full workup, and was kept for observation but left against medical advice. Patient denies any alcohol abuse, substance abuse, fever, chills, chest pain, shortness of breath, nausea, vomiting, diarrhea, urinary symptoms, back pain, neck pain, headache, dizziness, or any other complaints. Symptom Onset: Gradual Symptom Course: Unchanged Activities at Onset: Light Context: Home Past Medical History - Provider Review Nursing Documentation Reviewed: Yes Primary Care Provider: Lex Abraham - Infectious Disease Hx of Infectious Diseases: None - Cardiac Hx Hypertension: Yes - Pulmonary Hx Asthma: Yes Hx Chronic Obstructive Pulmonary Disease (COPD): Yes Hx Emphysema: Yes - Neurological Hx Seizures: Yes - HEENT Hx HEENT Disorder: No - Renal Hx Renal Disorder: No - Endocrine/Metabolic Hx Endocrine Disorders: No - Hematological/Oncological Hx Blood Disorders: No - Integumentary Other/Comment: red raised rash over entire body caused by dilantin as per patient, she now takes a lower dose. Pt has had rash x 2 months - Musculoskeletal/Rheumatological Hx Musculoskeletal Disorders: No Hx Falls: No - Gastrointestinal Hx Gastrointestinal Disorders: No - Genitourinary/Gynecological Hx Genitourinary Disorders: No Other/Comment: pt has 14 children including 4 sets of twins - Psychiatric Hx Anxiety: Yes Hx Depression: Yes Hx Substance Use: No - Past Surgical History Past Surgical History: No Previous - Surgical History Hx Tonsillectomy: Yes - Anesthesia Hx Anesthesia: Yes - Suicidal Assessment Feels Threatened In Home Enviroment: No Family/Social History - Physician Review Nursing Documentation Reviewed: Yes Family/Social History: Unknown Family HX Smoking Status: Heavy Smoker > 10 Cigarettes Daily Hx Alcohol Use: Yes (every other day 1 shot and 1 beer) Hx Substance Use: No Substance used: crack, marijuana Allergies/Home Meds Allergies/Adverse Reactions: Allergies Penicillins Allergy (Severe, Verified 02/25/19 02:51) SHORTNESS OF BREATH Home Medications: Home Meds Medication Instructions Recorded Confirmed ALPRAZolam [Xanax] 1 mg PO DAILY 01/27/19 02/25/19 Pantoprazole [Protonix EC Tab] 40 mg PO DAILY 01/27/19 02/25/19 Calcium Carbonate/Vitamin D3 1 tab PO DAILY 01/28/19 02/25/19 [Calcium 500 + Vit D Caplet] Fluticasone/Salmeterol [Advair 1 puff IH DAILY 01/28/19 02/25/19 250-50 Diskus] Loratadine [Claritin] 1 tab PO DAILY 01/28/19 02/25/19 Montelukast [Singulair] 1 tab PO DAILY 01/28/19 02/25/19 Multivitamin [Multivitamins] 1 tab PO DAILY 01/28/19 02/25/19 Pravastatin Sodium [Pravachol] 1 tab PO HS 01/28/19 02/25/19 amLODIPine [Norvasc] 5 mg PO DAILY 01/28/19 02/25/19 levETIRAcetam [Keppra] 1 tab PO DAILY 01/28/19 02/25/19 Review of Systems - Physician Review All systems were reviewed & negative as marked: Yes - Review of Systems Constitutional: Normal. absent: Fevers Eyes: Normal ENT: Normal Respiratory: Normal. absent: SOB, Cough Cardiovascular: Syncope. absent: Chest Pain Gastrointestinal: Normal. absent: Abdominal Pain, Diarrhea, Nausea, Vomiting Genitourinary Female: Normal. absent: Dysuria, Frequency, Hematuria, Urine Output Changes Musculoskeletal: Normal. absent: Back Pain, Neck Pain Skin: Normal. absent: Rash Neurological: Normal. absent: Headache, Dizziness Endocrine: Normal Hemo/Lymphatic: Normal Psychiatric: Normal Physical Exam Vital Signs Reviewed: Yes Vital Signs Temp Pulse Resp BP Pulse Ox 02/25/19 02:53 97.9 F 90 20 164/110 H 97 Temperature: Afebrile Blood Pressure: Hypertensive Pulse: Regular Respiratory Rate: Normal Appearance: Positive for: Well-Appearing, Non-Toxic, Comfortable Pain Distress: None Mental Status: Positive for: Alert and Oriented X 3 - Systems Exam Head: Present: Atraumatic, Normocephalic Pupils: Present: PERRL Extroacular Muscles: Present: EOMI Conjunctiva: Present: Normal Mouth: Present: Moist Mucous Membranes Neck: Present: Normal Range of Motion Respiratory/Chest: Present: Clear to Auscultation, Good Air Exchange. No: Respiratory Distress, Accessory Muscle Use Cardiovascular: Present: Regular Rate and Rhythm, Normal S1, S2. No: Murmurs Abdomen: No: Tenderness, Distention, Peritoneal Signs Back: Present: Normal Inspection Upper Extremity: Present: Normal Inspection. No: Cyanosis, Edema Lower Extremity: Present: Normal Inspection. No: Edema Neurological: Present: GCS=15, CN II-XII Intact, Speech Normal Skin: Present: Warm, Dry, Normal Color. No: Rashes Psychiatric: Present: Alert, Oriented x 3, Normal Insight, Normal Concentration Medical Decision Making ED Course and Treatment: 02/25/19 02:57 Impression: 48 year old female complaining of syncope. Plan: -- CT Head w/o contrast -- EKG -- Chest X-ray -- Labs, troponin -- Reassess and disposition Prior Visits: Notes and results from previous visits were reviewed. Progress Notes: Reviewed EKG, NSR at [address]-segment elevations or depressions, no T-wave inversions, normal intervals. 02/25/19 03:35 Chest X-ray reviewed, shows no acute processes. CT Head pending. 02/25/19 04:[address] Ramírez, who is aware and agrees with plan. Accepts pt in to hospitalist service. residential appraiser notified. 02/25/19 04:58 CT Head: Normal size of the ventricles and extra-axial spaces for the patient's age. Normal white matter tracts of the supratentorial brain. Normal basal ganglia and thalami. Normal brainstem. Normal cerebellum. There is no demonstrated extra-axial, intraparenchymal, or intraventricular hemorrhage. There are no findings of an acute ischemic infarction. Normal calvarium. There is no demonstrated fracture. Normal soft tissue structures. Normal visualized paranasal sinuses. IMPRESSION: Normal unenhanced CT scan of the brain. Electronically signed on February 25, 2019 4:55:38 AM EDT by: Dedrick Davis M.D., Certified by ABR, MSK, Neuroradiology - Scribe Statement The provider has reviewed the documentation as recorded by the Scribe Ana Carlos Provider Scribe Attestation: All medical record entries made by the Scribe were at my direction and personally dictated by me. I have reviewed the chart and agree that the record accurately reflects my personal performance of the history, physical exam, medical decision making, and the department course for this patient. I have also personally directed, reviewed, and agree with the discharge instructions and disposition. Disposition/Present on Arrival - Present on Arrival Any Indicators Present on Arrival: No History of DVT/PE: No History of Uncontrolled Diabetes: No Urinary Catheter: No History of Decub. Ulcer: No History Surgical Site Infection Following: None - Disposition Have Diagnosis and Disposition been Completed?: Yes Diagnosis: Syncope Disposition: HOSPITALIZED Disposition Time: 04:15 Condition: GOOD
[2019-02-25 03:23] LABS: BASO # 0.04 K/mm3 (0.0-2.0); BASO % 0.4 % (0.0-3.0); EOS # 0.3 (0.0-0.7); EOS % 2.8 % (1.5-5.0); LYMPH # 1.9 (1.2-3.4); LYMPH % 20.2 % (22.0-35.0); MEAN CELL VOLUME 93.9 fl (80.0-105.0); MEAN CORPUSCULAR HEMOGLOBIN 31.6 pg (25.0-35.0); MEAN CORPUSCULAR HGB CONC 33.6 g/dl (31.0-37.0); MEAN PLATELET VOLUME 9.2 fl (7.0-11.0); MONO # 1.1 (0.1-0.6); MONO % 11.9 % (1.0-6.0); RBC 3.93 10^6/uL (3.5-6.1); WHITE BLOOD COUNT 9.3 10^3/uL (4.5-11.0)
[2019-02-25 03:29] LABS: HEMOGLOBIN 12.4 g/dL (12.0-16.0)
[2019-02-25 03:44] LABS: TROPONIN I < 0.01 ng/mL
[2019-02-25 04:12] LABS: ALB/GLOB RATIO 1.2 (1.1-1.8); ALT/SGPT 43 U/L (7-56); AST/SGOT 66 U/L (14-36); BLOOD UREA NITROGEN 13 mg/dL (7-21); CALCIUM 10.3 mg/dL (8.4-10.5); GFR NON-AFRICAN AMERICAN > 60
[2019-02-25] MEDS ORDERED: Folic Acid 1 MG, Thiamine 100 MG, Multivitamin (MVI) 10 ML in Dextrose 5% In Water 1,00... IV SCH (05:45)
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
[2019-02-25] MEDS: Pantoprazole 40 mg EC Tab PO SCH (06:43)
[2019-02-25] MEDS: Budesonide 0.5 mg/2 ml Inhal Susp UD IH SCH (08:08)
[2019-02-25] MEDS: Arformoterol 15 mcg/2 ml Inh Sol IH SCH (08:09)
--- NOTE | 2019-02-25 09:02 | RAD ---
Date of service: 02/25/2019 PROCEDURE: CHEST RADIOGRAPH, 1 VIEW HISTORY: syncope COMPARISON: None available. FINDINGS: LUNGS: There is some parenchymal scarring in both lung apices. PLEURA: No pneumothorax or pleural fluid seen. CARDIOVASCULAR: No aortic atherosclerotic calcification present. Normal. OSSEOUS STRUCTURES: No significant abnormalities. VISUALIZED UPPER ABDOMEN: Normal. OTHER FINDINGS: None. IMPRESSION: No active disease.
[2019-02-25] MEDS: Calcium-Vit D 250 mg-125 Units Tab UD PO SCH (09:14)
[2019-02-25] MEDS: Multivitamin Therapeutic Tab PO SCH (09:14)
--- NOTE | 2019-02-25 09:26 | CT ---
Date of service: 02/25/2019 PROCEDURE: CT HEAD WITHOUT CONTRAST. HISTORY: syncope COMPARISON: 01/28/2019 TECHNIQUE: Axial computed tomography images were obtained through the head/brain without intravenous contrast. Radiation dose: Total exam DLP = 795.45 mGy-cm. This CT exam was performed using one or more of the following dose reduction techniques: Automated exposure control, adjustment of the mA and/or kV according to patient size, and/or use of iterative reconstruction technique. FINDINGS: HEMORRHAGE: No intracranial hemorrhage. BRAIN: No mass effect or edema. No atrophy or chronic microvascular ischemic changes. VENTRICLES: Unremarkable. No hydrocephalus. CALVARIUM: Unremarkable. PARANASAL SINUSES: Unremarkable as visualized. No significant inflammatory changes. MASTOID AIR CELLS: Unremarkable as visualized. No inflammatory changes. OTHER FINDINGS: The report concurs with the preliminary [facility] report IMPRESSION: No acute intracranial findings
[2019-02-25 09:59] LABS: BARBITURATES, UR NEGATIVE (NEGATIVE); BENZODIAZEPINES, UR NEGATIVE (NEGATIVE); OPIATES, UR NEGATIVE (NEGATIVE); PHENCYCLIDINE, UR NEGATIVE (NEGATIVE)
[2019-02-25] MEDS ORDERED: Fluticasone-Salmeterol 250-50mcg Diskus IH SCH (10:00)
--- NOTE | 2019-02-25 10:04 | CARD ---
APPROVED REPORT Date of service: 02/25/2019 EKG Measurement Heart [id number] <Conclusion> Normal sinus rhythm Normal ECG
--- NOTE | 2019-02-25 17:17 | US ---
PROCEDURE: Bilateral carotid artery duplex ultrasound HISTORY: carotid stenosis syncope. PHYSICIAN(S): Reji Kearney MD. TECHNIQUE: Duplex sonography and color-flow Doppler were used to evaluate the carotid bifurcations and limited segments of the vertebral arteries bilaterally. FINDINGS: There is mild smooth heterogeneous plaque noted at the carotid bifurcations bilaterally. The peak systolic velocity in the proximal right internal carotid artery is 53 cm/sec. This corresponds to a 20 to 39% proximal right ICA stenosis. Normal systolic velocities are noted in the proximal right external carotid artery. There is antegrade flow in the small right vertebral artery. The peak systolic velocity in the proximal left internal carotid artery is 66 cm/sec. This corresponds to a 20 to 39% proximal left ICA stenosis. Normal systolic velocities are noted in the proximal left external carotid artery. There is antegrade flow in the left vertebral artery. IMPRESSION: 1. Bilateral 20-39% proximal ICA stenoses. 2. Antegrade flow in both vertebral arteries.
[2019-02-25] MEDS ORDERED: Simethicone 80 mg Chewtab PO ONE (20:30)
[2019-02-26] MEDS: Pantoprazole 40 mg EC Tab PO SCH (05:45)
[2019-02-26 06:15] LABS: HEMOGLOBIN 11.3 g/dL (12.0-16.0); MEAN CELL VOLUME 95.6 fl (80.0-105.0); MEAN CORPUSCULAR HEMOGLOBIN 30.8 pg (25.0-35.0); MEAN CORPUSCULAR HGB CONC 32.2 g/dl (31.0-37.0); MEAN PLATELET VOLUME 9.5 fl (7.0-11.0); RBC 3.67 10^6/uL (3.5-6.1); RED CELL DISTRIBUTION WIDTH 13.1 % (11.5-14.5); WHITE BLOOD COUNT 5.4 10^3/uL (4.5-11.0)
[2019-02-26 06:53] LABS: ALB/GLOB RATIO 1.1 (1.1-1.8); ALBUMIN 3.8 g/dL (3.0-4.8); ALT/SGPT 28 U/L (7-56); AST/SGOT 43 U/L (14-36); BLOOD UREA NITROGEN 18 mg/dL (7-21); CALCIUM 9.4 mg/dL (8.4-10.5); GFR NON-AFRICAN AMERICAN > 60
[2019-02-26] MEDS: Arformoterol 15 mcg/2 ml Inh Sol IH SCH (07:49)
[2019-02-26] MEDS: Budesonide 0.5 mg/2 ml Inhal Susp UD IH SCH (07:50)
[2019-02-26 08:02] VITALS: BP 119/81; PULSE 75; RESP 20; TEMP 97.6; O2SAT 93
[2019-02-26] MEDS ORDERED: Magnesium Oxide 400 mg Tab UD PO SCH (10:00)
[2019-02-26] MEDS: Multivitamin Therapeutic Tab PO SCH (10:47)
[2019-02-26] MEDS: Calcium-Vit D 250 mg-125 Units Tab UD PO SCH (10:47)
--- NOTE | 2019-02-26 17:15 | CP.PCM.DIS ---
<Jacques Mirza - Last Filed: 02/26/19 17:04> Provider - Provider Date of Admission: 02/25/19 04:16 Attending physician: Abigail Milligan DO Primary care physician: Lex Abraham MD Consults: 02/25/19 08:10 Social Work Referral Routine Comment: Protocol Physician Instructions: Reason For Exam: Discharge planning 02/25/19 08:12 Transition In Care/Readmission Reduction Routine Comment: Physician Instructions: Reason For Exam: Recent admission for SYNCOPE Time Spent in preparation of Discharge (in minutes): 45 Hospital Course - Lab Results Lab Results: Most Recent Lab Values WBC 5.4 10^3/uL (4.5-11.0) D 02/26/19 05:00 RBC 3.67 10^6/uL (3.5-6.1) 02/26/19 05:00 Hgb 11.3 g/dL (12.0-16.0) L 02/26/19 05:00 Hct 35.1 % (36.0-48.0) L 02/26/19 05:00 MCV 95.6 fl (80.0-105.0) 02/26/19 05:00 MCH 30.8 pg (25.0-35.0) 02/26/19 05:00 MCHC 32.2 g/dl (31.0-37.0) 02/26/19 05:00 RDW 13.1 % (11.5-14.5) 02/26/19 05:00 Plt Count 229 10^3/uL (120.0-450.0) 02/26/19 05:00 MPV 9.5 fl (7.0-11.0) 02/26/19 05:00 Neut % (Auto) 64.7 % (50.0-68.0) 02/25/19 03:07 Lymph % (Auto) 20.2 % (22.0-35.0) L 02/25/19 03:07 Trigg % (Auto) 11.9 % (1.0-6.0) H 02/25/19 03:07 Eos % (Auto) 2.8 % (1.5-5.0) 02/25/19 03:07 Baso % (Auto) 0.4 % (0.0-3.0) 02/25/19 03:07 Lymph # (Auto) 1.9 (1.2-3.4) 02/25/19 03:07 Trigg # (Auto) 1.1 (0.1-0.6) H 02/25/19 03:07 Eos # (Auto) 0.3 (0.0-0.7) 02/25/19 03:07 Baso # (Auto) 0.04 K/mm3 (0.0-2.0) 02/25/19 03:07 Absolute Neuts (auto) 6.00 (1.4-6.5) 02/25/19 03:07 Sodium 141 mmol/L (132-148) 02/26/19 05:30 Potassium 4.6 mmol/L (3.6-5.0) 02/26/19 05:30 Chloride 103 mmol/L (98-107) 02/26/19 05:30 Carbon Dioxide 29 mmol/L (21-33) 02/26/19 05:30 Anion Gap 13 (10-20) 02/26/19 05:30 BUN 18 mg/dL (7-21) 02/26/19 05:30 Creatinine 0.8 mg/dl (0.7-1.2) 02/26/19 05:30 Est GFR ( Amer) > 60 02/26/19 05:30 Est GFR (Non-Af Amer) > 60 02/26/19 05:30 POC Glucose (mg/dL) 116 mg/dL (65-110) H 02/25/19 10:44 Random Glucose 99 mg/dL (70-110) 02/26/19 05:30 Calcium 9.4 mg/dL (8.4-10.5) 02/26/19 05:30 Phosphorus 5.2 mg/dL (2.5-4.5) H 02/26/19 05:30 Magnesium 1.5 mg/dL (1.7-2.2) L 02/26/19 05:30 Total Bilirubin 0.4 mg/dL (0.2-1.3) 02/26/19 05:30 AST 43 U/L (14-36) H D 02/26/19 05:30 ALT 28 U/L (7-56) 02/26/19 05:30 Alkaline Phosphatase 89 U/L (38-126) 02/26/19 05:30 Troponin I < 0.01 ng/mL 02/25/19 03:07 Total Protein 7.2 g/dL (5.8-8.3) 02/26/19 05:30 Albumin 3.8 g/dL (3.0-4.8) 02/26/19 05:30 Globulin 3.4 gm/dL 02/26/19 05:30 Albumin/Globulin Ratio 1.1 (1.1-1.8) 02/26/19 05:30 Urine Opiates Screen Negative (NEGATIVE) 02/25/19 09:00 Urine Methadone Screen Negative (NEGATIVE) 02/25/19 09:00 Ur Barbiturates Screen Negative (NEGATIVE) 02/25/19 09:00 Ur Phencyclidine Scrn Negative (NEGATIVE) 02/25/19 09:00 Ur Amphetamines Screen Negative (NEGATIVE) 02/25/19 09:00 U Benzodiazepines Scrn Negative (NEGATIVE) 02/25/19 09:00 U Oth Cocaine Metabols Positive (NEGATIVE) H 02/25/19 09:00 U Cannabinoids Screen Negative (NEGATIVE) 02/25/19 09:00 Alcohol, Quantitative 38 mg/dL (0-10) H 02/25/19 03:07 - Hospital Course Hospital Course: 48 year old female, whose past medical history includes seizure disorder, hypertension, hyperlipidemia, COPD, bipolar disorder, alcohol abuse, substance abuse who presented to the ED complaining of syncope. She stated she had a syncopal episode and felt a dark curtain over her eyes when this occurred and she lost consciousness. Patient admitted for syncope work up. CT head w/o contrast showed no acute issues. CXR, no active disease, troponin negative x1. EKG showed NSR @[address] or T wave changes. Seizure/fall/aspiration precautions taken. UDS was positive for cocaine and alcohol. WA protocol, ativan, banana bag given. Neurology was consulted for the history of seizure, patient did not want to wait for neurologist to see her. She wanted to sign AMA. Risks expalined to patient incluiding worsening of her symptoms with known/unknown consequences including and limited to seizure, fall, loos of limb and . Patient has full capacity, AAOx3 and can make her own decisions. She left AMA. Discharge Exam - Additional Findings Additional findings: no physical exam done patient left AMA Discharge Plan - Follow Up Plan Condition: GOOD Disposition: AGAINST MEDICAL ADVICE Referrals: Lex Abraham MD [Primary Care Provider] - <Abigail Milligan - Last Filed: 02/27/19 07:51> Provider - Provider Date of Admission: 02/25/19 04:16 Attending physician: Abigail Milligan DO Primary care physician: Lex Abraham MD Consults: 02/25/19 08:10 Social Work Referral Routine Comment: Protocol Physician Instructions: Reason For Exam: Discharge planning 02/25/19 08:12 Transition In Care/Readmission Reduction Routine Comment: Physician Instructions: Reason For Exam: Recent admission for SYNCOPE Hospital Course - Lab Results Lab Results: Most Recent Lab Values WBC 5.4 10^3/uL (4.5-11.0) D 02/26/19 05:00 RBC 3.67 10^6/uL (3.5-6.1) 02/26/19 05:00 Hgb 11.3 g/dL (12.0-16.0) L 02/26/19 05:00 Hct 35.1 % (36.0-48.0) L 02/26/19 05:00 MCV 95.6 fl (80.0-105.0) 02/26/19 05:00 MCH 30.8 pg (25.0-35.0) 02/26/19 05:00 MCHC 32.2 g/dl (31.0-37.0) 02/26/19 05:00 RDW 13.1 % (11.5-14.5) 02/26/19 05:00 Plt Count 229 10^3/uL (120.0-450.0) 02/26/19 05:00 MPV 9.5 fl (7.0-11.0) 02/26/19 05:00 Neut % (Auto) 64.7 % (50.0-68.0) 02/25/19 03:07 Lymph % (Auto) 20.2 % (22.0-35.0) L 02/25/19 03:07 Trigg % (Auto) 11.9 % (1.0-6.0) H 02/25/19 03:07 Eos % (Auto) 2.8 % (1.5-5.0) 02/25/19 03:07 Baso % (Auto) 0.4 % (0.0-3.0) 02/25/19 03:07 Lymph # (Auto) 1.9 (1.2-3.4) 02/25/19 03:07 Trigg # (Auto) 1.1 (0.1-0.6) H 02/25/19 03:07 Eos # (Auto) 0.3 (0.0-0.7) 02/25/19 03:07 Baso # (Auto) 0.04 K/mm3 (0.0-2.0) 02/25/19 03:07 Absolute Neuts (auto) 6.00 (1.4-6.5) 02/25/19 03:07 Sodium 141 mmol/L (132-148) 02/26/19 05:30 Potassium 4.6 mmol/L (3.6-5.0) 02/26/19 05:30 Chloride 103 mmol/L (98-107) 02/26/19 05:30 Carbon Dioxide 29 mmol/L (21-33) 02/26/19 05:30 Anion Gap 13 (10-20) 02/26/19 05:30 BUN 18 mg/dL (7-21) 02/26/19 05:30 Creatinine 0.8 mg/dl (0.7-1.2) 02/26/19 05:30 Est GFR ( Amer) > 60 02/26/19 05:30 Est GFR (Non-Af Amer) > 60 02/26/19 05:30 POC Glucose (mg/dL) 116 mg/dL (65-110) H 02/25/19 10:44 Random Glucose 99 mg/dL (70-110) 02/26/19 05:30 Calcium 9.4 mg/dL (8.4-10.5) 02/26/19 05:30 Phosphorus 5.2 mg/dL (2.5-4.5) H 02/26/19 05:30 Magnesium 1.5 mg/dL (1.7-2.2) L 02/26/19 05:30 Total Bilirubin 0.4 mg/dL (0.2-1.3) 02/26/19 05:30 AST 43 U/L (14-36) H D 02/26/19 05:30 ALT 28 U/L (7-56) 02/26/19 05:30 Alkaline Phosphatase 89 U/L (38-126) 02/26/19 05:30 Troponin I < 0.01 ng/mL 02/25/19 03:07 Total Protein 7.2 g/dL (5.8-8.3) 02/26/19 05:30 Albumin 3.8 g/dL (3.0-4.8) 02/26/19 05:30 Globulin 3.4 gm/dL 02/26/19 05:30 Albumin/Globulin Ratio 1.1 (1.1-1.8) 02/26/19 05:30 Urine Opiates Screen Negative (NEGATIVE) 02/25/19 09:00 Urine Methadone Screen Negative (NEGATIVE) 02/25/19 09:00 Ur Barbiturates Screen Negative (NEGATIVE) 02/25/19 09:00 Ur Phencyclidine Scrn Negative (NEGATIVE) 02/25/19 09:00 Ur Amphetamines Screen Negative (NEGATIVE) 02/25/19 09:00 U Benzodiazepines Scrn Negative (NEGATIVE) 02/25/19 09:00 U Oth Cocaine Metabols Positive (NEGATIVE) H 02/25/19 09:00 U Cannabinoids Screen Negative (NEGATIVE) 02/25/19 09:00 Alcohol, Quantitative 38 mg/dL (0-10) H 02/25/19 03:07 Attending/Attestation - Attestation I have personally seen and examined this patient.: Yes I have fully participated in the care of the patient.: Yes I have reviewed all pertinent clinical information, including history, physical exam and plan: Yes Notes (Text): Please note this DC summary is for 02/26/19 Patient seen and examined by me with resident at approximately 10:05AM and prior to signing out AMA on 02/26/19. Case including discharge plan discussed with resident. Agree with above with following additions/corrections. Patient is a 48 year old female with past medical history significant for seizure disorder, hypertension, hyperlipidemia, COPD, bipolar disorder, alcohol abuse, and substance abuse that presented to the emergency room for syncope. Please see H&P for full details. Patient was found to have syncope, alcohol withdrawal/abuse, cocaine abuse, history of seizures, COPD, hypertension, hyperlipidemia, and GERD. Head CT per radiologist showed no acute intracranial findings. Carotid ultrasound per radiologist showed bilateral 20-39% proximal ICA stenoses. UDS was positive for cocaine. Alcohol level on admission was 38. Patient was treated with CIWA protocol and banana bag. Patient was also placed on Ativan prn. Patient was continued on home Keppra for history of seizures. Patient was continued on home Singulair for history of COPD. Patient was also treated with claritin, Brovana, and Pulmicort. Patient was continued on Norvasc for hypertension and lipitor for hyperlipidemia. Neurologist was consulted. Neurologist called nurse to cancel consult. Call was placed to neurologist and call back was pending when patient decided to sign out AMA. Patient requested to sign out against medical advice. This action is against my medical advice to the patient and the decision was made with informed refusal. The patient was told that further work up and treatment is necessary and a full explanation of my rationale was given. The risks for leaving were explained to the patient and include but are not limited to increased mortality and morbidity, , permanent disability, and worsening of known or unknown conditions. Patient was AAOx3 and was able to make this informed decision and understood the clinical situation and my explanation of the risks of leaving. The patient voluntarily accepted these risks and signed an AMA form. The patient was given the opportunity to ask questions and reconsider. The patient was encouraged to return to the emergency room at any time for further treatment. Physical exam: General: Awake and alert lying in bed in no acute distress, HEENT: Normocephalic, atraumatic. Extraocular muscles intact. Pupils equal and reactive, no scleral icterus. Oropharynx is pink and moist. No pharyngeal erythema or exudate appreciated. Neck is supple. Cardiovascular: Normal rhythm. Normal S1 and S2. No murmurs, rubs, or gallops appreciated Pulmonary: Normal respiratory effort. Decreased breath sounds. No rhonchi, rales, or wheezing appreciated. Gastrointestinal: Soft, nondistended. Nontender. Positive bowel sounds all 4 quadrants. No guarding. Musculoskeletal: Moves all extremities. No calf tenderness. No edema apprec iated. Central nervous system: AAO x 3. CN 2-12 grossly intact. No focal deficits appreciated. Dermatologic: Skin warm and dry. Please see chart for full details.
== END 2019-02-26 14:08 | disposition left against medical advice (07) ==
LOC: ED 02:43 → ERH 04:16 → 3RNO 05:19
PROVIDERS: ADMIT Internal Medicine; ATTEND Hospitalist
DX: R55 Syncope and collapse (principal); F10.239 Alcohol dependence with withdrawal, unspecified; Y90.1 Blood alcohol level of 20-39 mg/100 ml; F14.10 Cocaine abuse, uncomplicated; I10 Essential (primary) hypertension; G40.909 Epilepsy, unspecified, not intractable, without status epilepticus; K21.9 Gastro-esophageal reflux disease without esophagitis; E78.5 Hyperlipidemia, unspecified; F31.9 Bipolar disorder, unspecified; J43.9 Emphysema, unspecified; F17.210 Nicotine dependence, cigarettes, uncomplicated; Z88.0 Allergy status to penicillin
CPT/HCPCS: 36415; 70450; 71045; 80053; 80320; 80324; 80345; 80346; 80349; 80353; 80358; 80361; 81025; 82948; 83735; 83992; 84100; 84484; 85025; 85027; 93005; 93880; 99285; G0378; J2060; J3411; J7070